=== PATIENT | female | born 1965 | race Caucasian/White ===

== ENCOUNTER 2016-12-21 06:06 | Day surgery (SDC) | payer BC ==
[2016-12-18 10:21] LABS: Basophils # (auto) 0.2 uL; Basophils % (auto) 1.2 % (0.0-2.0); Eosinophils # (auto) 0.2 uL; Eosinophils % (auto) 1.6 % (0.0-7.0); Hematocrit 43.5 % (36.0-46.0); Hemoglobin 14.9 g/dL (12.2-16.2); Lymphocytes # (auto) 2.2 uL; Lymphocytes % (auto) 16.4 % (10.0-50.0); Mean Corpuscular Hgb Conc. 34.2 g/dL (32.0-36.0); Mean Corpuscular Volume 96.5 fL (80.0-100.0); Mean Platelet Volume 9.7 fL (7.4-10.4); Monocytes # (auto) 0.8 uL; Monocytes % (auto) 5.7 % (0.0-12.0); Neutrophils # (auto) 10.1 uL; Neutrophils % (auto) 75.1 % (37.0-80.0); Platelet Count (auto) 373 10^3/uL (140-450); Red Cell Distribution Width 12.8 % (11.6-16.0); White Blood Cell 13.5 10^3/uL (4.4-10.8)
[2016-12-18 10:31] LABS: Urine Bilirubin Negative (Negative); Urine Blood Negative /uL (Negative); Urine Color Yellow (Yellow); Urine Glucose Normal (Normal); Urine Ketone Negative (Negative); Urine Nitrite Negative (Negative); Urine RBC <1 /hpf (0 - 4); Urine Squamous Epithelial Cell FEW /hpf (<5); Urine Urobilinogen Normal (Negative); Urine pH 5.5 (5.0-8.0)
[2016-12-18 10:38] LABS: Albumin 3.9 g/dL (3.4-5.0); BUN/Creatinine Ratio 21.2; Bilirubin, Total 0.3 mg/dL (0.2-1.0); Calcium 9.2 mg/dL (8.5-10.1); Total Protein 7.3 g/dL (6.4-8.2)
[~2016-12-21] VITALS: Ht 175.3 cm; Wt 72.6 kg
[~2016-12-21 06:06] MED LIST: LEVO25TA9 OR; PREG50CA PO
[2016-12-21] MEDS ORDERED: ceFAZolin 1GM/50ML D5W 100 ML IV ONE (06:36)
[2016-12-21] MEDS ORDERED: NEOMYCIN-BACITRACIN-POLYM 15GM TOP OINT TOP ONE (06:37)
[2016-12-21] MEDS ORDERED: LIDOCAINE 1% HCL (LOCAL ANESTH.) INJ 20ML MDV ONE ×2 (06:37)
[2016-12-21] MEDS ORDERED: BUPIVACAINE 0.25% INJ 50ML VIAL ONE (06:37)
[2016-12-21] MEDS ORDERED: HEPARIN SODIUM (PORCINE) 5000 UNITS/ML 1ML VIAL ONE (06:56)
[2016-12-21] MEDS ORDERED: fentaNYL CITRATE 100 MCG/2 ML VL ONE (07:24)
[2016-12-21] MEDS ORDERED: MIDAZOLAM HCL 1MG/1ML-2 ML VIAL ONE (07:24)
[2016-12-21] MEDS ORDERED: MEPERIDINE HCL (50 MG/ML) 1 ML VIAL ONE (07:24)
[2016-12-21] MEDS ORDERED: PROPOFOL 10 MG/ML 20 ML IV ONE (07:26)
[2016-12-21] MEDS ORDERED: DEXAMETHASONE SOD PHOS 10MG/1ML VIAL INJ ONE (07:26)
[2016-12-21] MEDS ORDERED: KETOROLAC TROMETH 30 MG/ML 1ML VIAL ONE (07:42)
[2016-12-21] MEDS ORDERED: ePHEDrine SULFATE 50 MG/ML AMP IV PRN (08:15)
[2016-12-21] MEDS ORDERED: MIDAZOLAM HCL 1MG/1ML-2 ML VIAL IV PRN (08:15)
[2016-12-21] MEDS ORDERED: LABETALOL HCL 5 MG/ML 4ML SYRINGE IV PRN (08:15)
[2016-12-21] MEDS ORDERED: MORPHINE SULF INJ 2 MG/ML SYRINGE 1ML IV PRN (08:15)
[2016-12-21] MEDS ORDERED: KETOROLAC TROMETH 30 MG/ML 1ML VIAL IV ONE (08:15)
[2016-12-21] MEDS ORDERED: HYDROmorphone HCL 2 MG/ML VL IV PRN (08:15)
[2016-12-21] MEDS ORDERED: ONDANSETRON HCL 4 MG/2 ML VIAL IV ONE (08:15)
[2016-12-21 09:29] VITALS: BP 139/54
== END 2016-12-21 09:30 | disposition home or self-care (01) ==
LOC: SUR 06:06
PROVIDERS: ATTEND Surgery
DX: R22.2 Localized swelling, mass and lump, trunk (principal)
CPT/HCPCS: 11406; 36415; 80053; 81001; 85025; 85730; 88304; J0690; J1100; J1644; J1885; J2001; J2175; J2250; J2704; J3010; J3490

== ENCOUNTER 2017-02-06 14:09 | Inpatient (IN) | payer BC ==
[~2017-02-06] VITALS: Ht 175.3 cm; Wt 73.5 kg
[2017-02-06] MEDS ORDERED: SODIUM CHLORIDE 0.9% 1,000 ML IV ONE ×3 (14:37)
[2017-02-06] MEDS ORDERED: ONDANSETRON HCL 4 MG/2 ML VIAL IV ONE (14:45)
[2017-02-06] MEDS ORDERED: MORPHINE SULFATE 4 MG/ML SYRG IV ONE (14:45)
[2017-02-06] MEDS ORDERED: cefTRIAXone 1GM/50ML D5W 50 ML IV ONE (14:45)
[2017-02-06] MEDS ORDERED: CLINDAMYCIN 900MG IV 50 ML IV ONE (14:45)
[2017-02-06 15:16] LABS: Basophils # (auto) 0 uL; Basophils % (auto) 0.2 % (0.0-2.0); CONDITION Y; Eosinophils # (auto) 0.2 uL; Eosinophils % (auto) 2.9 % (0.0-7.0); Hematocrit 48.1 % (36.0-46.0); Hemoglobin 16.1 g/dL (12.2-16.2); Lymphocytes # (auto) 1.3 uL; Lymphocytes % (auto) 17.5 % (10.0-50.0); Mean Corpuscular Hemoglobin 32.3 pg (28.0-32.0); Mean Corpuscular Hgb Conc. 33.5 g/dL (32.0-36.0); Mean Corpuscular Volume 96.4 fL (80.0-100.0); Mean Platelet Volume 9.5 fL (7.4-10.4); Monocytes # (auto) 0.2 uL; Monocytes % (auto) 3.2 % (0.0-12.0); Neutrophils # (auto) 5.6 uL; Neutrophils % (auto) 76.2 % (37.0-80.0); Platelet Count (auto) 178 10^3/uL (140-450); Red Cell Distribution Width 14.8 % (11.6-16.0); White Blood Cell 7.4 10^3/uL (4.4-10.8)
[2017-02-06 15:38] LABS: Albumin 3.4 g/dL (3.4-5.0); Alkaline Phosphatase 85 U/L (45-117); Anion Gap 10 (5-15); Aspartate Aminotransferase 2306 U/L (15-37); BUN/Creatinine Ratio 12.9; Bilirubin, Total 1.8 mg/dL (0.2-1.0); Blood Urea Nitrogen 8 mg/dL (7-18); Calcium 8.5 mg/dL (8.5-10.1); Carbon Dioxide 26 mmol/L (21-32); Chloride 99 mmol/L (98-107); GFR African American 129 mL/min; GFR Non-African American 107 mL/min; Glucose 128 mg/dL (74-106); Potassium 3.5 mmol/L (3.5-5.1); Sodium 135 mmol/L (136-145)
[2017-02-06] MEDS ORDERED: HYDROmorphone HCL 2 MG/ML VL IV ONE (15:45)
[2017-02-06 16:41] LABS: INR 1.23 (0.9-1.15); Partial Thromboplastin Time 29.1 sec (22.64-33.71)
[2017-02-06 16:55] LABS: Prothrombin Time 13.4 sec (9.37-12.3)
[2017-02-06] MEDS ORDERED: PREGABALIN 25 MG CAP PO ONE (18:00)
[2017-02-06] MEDS ORDERED: LEVOTHYROXINE SODIUM 25 MCG TAB PO ONE (18:00)
[2017-02-06] MEDS ORDERED: HYDROcodone-ACET 5/325MG TAB PO PRN (18:00)
[2017-02-06] MEDS ORDERED: TEMAZEPAM 15 MG CAP PO PRN (18:00)
[2017-02-06] MEDS ORDERED: DOCUSATE SOD 100 MG CAP PO PRN (18:00)
[2017-02-06] MEDS ORDERED: ACETAMINOPHEN 325 MG TAB PO PRN (18:00)
[2017-02-06] MEDS ORDERED: ONDANSETRON HCL 4 MG/2 ML VIAL IV PRN (18:00)
[2017-02-06] MEDS ORDERED: DEXTROSE (50%) 50ML SYRG IV PRN (18:00)
[2017-02-06] MEDS ORDERED: MULTIPLE VITAMIN TAB PO ONE (18:15)
[2017-02-06] MEDS ORDERED: ZINC SULFATE 220 MG CAP PO ONE (18:15)
[2017-02-06] MEDS ORDERED: ASCORBIC ACID 500 MG TAB PO ONE (18:15)
[2017-02-06] MEDS ORDERED: FAMOTIDINE 20 MG TAB PO ONE (18:15)
[2017-02-06] MEDS: SODIUM CHLORIDE 0.9% 1,000 ML IV SCH (18:47)
[2017-02-06 19:45] VITALS: BP 122/80
[2017-02-06] MEDS: MORPHINE SULF INJ 2 MG/ML SYRINGE 1ML IV PRN (20:54)
[2017-02-06 22:07] VITALS: BP 122/80
[2017-02-06 22:13] LABS: Urine Bilirubin Negative (Negative); Urine Blood Negative /uL (Negative); Urine Color Yellow (Yellow); Urine Glucose Normal (Normal); Urine Ketone Negative (Negative); Urine Mucus FEW (None Seen); Urine Nitrite Negative (Negative); Urine RBC 1 /hpf (0 - 4); Urine Squamous Epithelial Cell MOD /hpf (<5)
[2017-02-06] MEDS: ACCU-CHEK COMFORT CURVE STRIP VI SCH (22:56)
[2017-02-06] MEDS: CLINDAMYCIN 600MG IV 50 ML IV SCH (22:56)
[2017-02-06] MEDS: FAMOTIDINE 20 MG TAB PO SCH (22:56)
[2017-02-06] MEDS: ASCORBIC ACID 500 MG TAB PO SCH (22:56)
[2017-02-06] MEDS: PREGABALIN 25 MG CAP PO SCH (22:56)
[2017-02-06] MEDS: InsuLIN REG 1unit/0.01ml Soln (100units/ml) SC SCH (22:57)
[2017-02-07] MEDS ORDERED: DULO60CA PO (01:15)
[2017-02-07] MEDS ORDERED: PREG50CA PO (01:15)
[2017-02-07] MEDS: MORPHINE SULF INJ 2 MG/ML SYRINGE 1ML IV PRN (03:38)
[2017-02-07 04:51] VITALS: BP 117/79
[2017-02-07 06:36] LABS: Basophils # (auto) 0 uL; Basophils % (auto) 0.8 % (0.0-2.0); CONDITION Y; Eosinophils # (auto) 0.5 uL; Eosinophils % (auto) 7.9 % (0.0-7.0); Hematocrit 37.3 % (36.0-46.0); Hemoglobin 12.6 g/dL (12.2-16.2); Lymphocytes # (auto) 1.8 uL; Lymphocytes % (auto) 30.6 % (10.0-50.0); Mean Corpuscular Hemoglobin 32.7 pg (28.0-32.0); Mean Corpuscular Hgb Conc. 33.6 g/dL (32.0-36.0); Mean Corpuscular Volume 97.3 fL (80.0-100.0); Mean Platelet Volume 9.2 fL (7.4-10.4); Monocytes # (auto) 0.5 uL; Neutrophils % (auto) 51.7 % (37.0-80.0); Platelet Count (auto) 147 10^3/uL (140-450); Red Cell Distribution Width 14.8 % (11.6-16.0); White Blood Cell 5.8 10^3/uL (4.4-10.8)
[2017-02-07 06:52] LABS: Albumin 2.4 g/dL (3.4-5.0); Calcium 7.4 mg/dL (8.5-10.1); Potassium 3.9 mmol/L (3.5-5.1)
[2017-02-07] MEDS: LEVOTHYROXINE SODIUM 25 MCG TAB PO SCH (06:52)
[2017-02-07] MEDS: CLINDAMYCIN 600MG IV 50 ML IV SCH ×3 (06:52→22:35)
[2017-02-07] MEDS: InsuLIN REG 1unit/0.01ml Soln (100units/ml) SC SCH ×4 (06:52→22:00)
[2017-02-07] MEDS: ACCU-CHEK COMFORT CURVE STRIP VI SCH ×4 (06:52→22:00)
[2017-02-07 06:53] LABS: BUN/Creatinine Ratio 15.8
[2017-02-07 07:06] LABS: Bilirubin, Total 0.9 mg/dL (0.2-1.0); Total Protein 5.2 g/dL (6.4-8.2)
[2017-02-07 08:00] VITALS: BP 123/78
[2017-02-07 09:00] VITALS: BP 123/78
[2017-02-07] MEDS: cefTRIAXone 1GM/50ML D5W 50 ML IV SCH (09:32)
[2017-02-07] MEDS: ASCORBIC ACID 500 MG TAB PO SCH ×2 (09:32→22:35)
[2017-02-07] MEDS: PREGABALIN 25 MG CAP PO SCH ×2 (09:32→22:35)
[2017-02-07] MEDS: FAMOTIDINE 20 MG TAB PO SCH ×2 (09:32→22:35)
[2017-02-07] MEDS: MULTIPLE VITAMIN TAB PO SCH (09:32)
[2017-02-07] MEDS: ZINC SULFATE 220 MG CAP PO SCH (09:50)
[2017-02-07] MEDS: SODIUM CHLORIDE 0.9% 1,000 ML IV SCH (10:35)
[2017-02-07] MEDS: Boost Glucose Control 8 Ounces PO SCH ×3 (12:00→22:35)
[2017-02-07] MEDS: HYDROmorphone HCL 2 MG/ML VL IV PRN ×3 (12:03→22:57)
[2017-02-07 13:00] VITALS: BP 118/76
[2017-02-07 17:00] VITALS: BP 144/84
[2017-02-07] MEDS ORDERED: LORazepam 2MG/ML-1ML VIAL IV PRN (17:30)
[2017-02-07 22:00] VITALS: BP 123/80
[2017-02-08] MEDS: HYDROmorphone HCL 2 MG/ML VL IV PRN ×4 (03:17→21:38)
[2017-02-08 05:00] VITALS: BP 111/61
[2017-02-08] MEDS: Boost Glucose Control 8 Ounces PO SCH ×4 (05:23→21:36)
[2017-02-08] MEDS: CLINDAMYCIN 600MG IV 50 ML IV SCH ×3 (05:23→21:36)
[2017-02-08 05:55] LABS: Basophils # (auto) 0.1 uL; Basophils % (auto) 0.9 % (0.0-2.0); CONDITION Y; Eosinophils # (auto) 0.7 uL; Hematocrit 39.1 % (36.0-46.0); Lymphocytes # (auto) 1.6 uL; Lymphocytes % (auto) 25.3 % (10.0-50.0); Mean Corpuscular Hemoglobin 32.4 pg (28.0-32.0); Mean Corpuscular Hgb Conc. 33.3 g/dL (32.0-36.0); Mean Corpuscular Volume 97.3 fL (80.0-100.0); Mean Platelet Volume 8.9 fL (7.4-10.4); Neutrophils % (auto) 47.8 % (37.0-80.0); Platelet Count (auto) 195 10^3/uL (140-450); Red Cell Distribution Width 14.8 % (11.6-16.0); White Blood Cell 6.4 10^3/uL (4.4-10.8)
[2017-02-08 06:07] LABS: Albumin 2.6 g/dL (3.4-5.0); BUN/Creatinine Ratio 13.6; Bilirubin, Total 0.6 mg/dL (0.2-1.0); Calcium 8.3 mg/dL (8.5-10.1); Potassium 3.9 mmol/L (3.5-5.1); Total Protein 5.9 g/dL (6.4-8.2)
[2017-02-08] MEDS: InsuLIN REG 1unit/0.01ml Soln (100units/ml) SC SCH ×4 (06:37→21:37)
[2017-02-08] MEDS: ACCU-CHEK COMFORT CURVE STRIP VI SCH ×4 (06:37→21:37)
[2017-02-08] MEDS: LEVOTHYROXINE SODIUM 25 MCG TAB PO SCH (06:37)
[2017-02-08] MEDS: SODIUM CHLORIDE 0.9% 1,000 ML IV SCH ×2 (06:46→20:00)
[2017-02-08 08:00] VITALS: BP 135/94
[2017-02-08 09:00] VITALS: BP 135/94
[2017-02-08] MEDS: ZINC SULFATE 220 MG CAP PO SCH (11:09)
[2017-02-08] MEDS: PREGABALIN 25 MG CAP PO SCH ×2 (11:09→21:35)
[2017-02-08] MEDS: cefTRIAXone 1GM/50ML D5W 50 ML IV SCH (11:09)
[2017-02-08] MEDS: MULTIPLE VITAMIN TAB PO SCH (11:09)
[2017-02-08] MEDS: ASCORBIC ACID 500 MG TAB PO SCH ×2 (11:09→21:35)
[2017-02-08 13:00] VITALS: BP 126/74
[2017-02-08 17:00] VITALS: BP 130/60
[2017-02-08] MEDS: FAMOTIDINE 20 MG TAB PO SCH ×2 (17:19→21:36)
[2017-02-08 22:00] VITALS: BP 108/70
[2017-02-09 05:00] VITALS: BP 124/82
[2017-02-09] MEDS: CLINDAMYCIN 600MG IV 50 ML IV SCH ×3 (06:21→22:36)
[2017-02-09] MEDS: InsuLIN REG 1unit/0.01ml Soln (100units/ml) SC SCH ×4 (06:21→22:00)
[2017-02-09] MEDS: LEVOTHYROXINE SODIUM 25 MCG TAB PO SCH (06:21)
[2017-02-09] MEDS: Boost Glucose Control 8 Ounces PO SCH ×4 (06:21→22:36)
[2017-02-09] MEDS: ACCU-CHEK COMFORT CURVE STRIP VI SCH ×4 (06:22→22:00)
[2017-02-09 07:08] LABS: DEFINITIVE SEE PRINTOUT; Hematocrit 40.5 % (36.0-46.0); Hemoglobin 13.7 g/dL (12.2-16.2); Mean Corpuscular Hemoglobin 32.2 pg (28.0-32.0); Mean Corpuscular Hgb Conc. 33.8 g/dL (32.0-36.0); Mean Corpuscular Volume 95.3 fL (80.0-100.0); Mean Platelet Volume 8.8 fL (7.4-10.4); Platelet Count (auto) 224 10^3/uL (140-450); Red Cell Distribution Width 13.4 % (11.6-16.0); SUSPECT SEE PRINTOUT
[2017-02-09 07:13] LABS: BUN/Creatinine Ratio 20.6; Calcium 8.3 mg/dL (8.5-10.1); Potassium 3.9 mmol/L (3.5-5.1)
[2017-02-09 07:24] LABS: Metamyelocytes % 0; Myelocytes % 0; Promyelocytes % 0; Reactive Lymphocytes 0
[2017-02-09 08:00] VITALS: BP 124/82
[2017-02-09 08:16] LABS: Platelet Estimate Adequate; RBC Morphology Normal
[2017-02-09 09:00] VITALS: BP 120/81
[2017-02-09] MEDS: cefTRIAXone 1GM/50ML D5W 50 ML IV SCH (09:00)
[2017-02-09] MEDS: ASCORBIC ACID 500 MG TAB PO SCH ×2 (09:48→22:37)
[2017-02-09] MEDS: PREGABALIN 25 MG CAP PO SCH ×2 (09:48→22:36)
[2017-02-09] MEDS: ZINC SULFATE 220 MG CAP PO SCH (09:48)
[2017-02-09] MEDS: MULTIPLE VITAMIN TAB PO SCH (09:48)
[2017-02-09] MEDS: FAMOTIDINE 20 MG TAB PO SCH ×2 (09:52→22:00)
[2017-02-09] MEDS: HYDROmorphone HCL 2 MG/ML VL IV PRN ×3 (12:18→23:15)
[2017-02-09 13:00] VITALS: BP 121/76
[2017-02-09 16:15] LABS: INR 0.95 (0.9-1.15); Partial Thromboplastin Time 27.3 sec (22.64-33.71); Prothrombin Time 10.3 sec (9.37-12.3)
[2017-02-09 17:00] VITALS: BP 110/74
[2017-02-09] MEDS: SODIUM CHLORIDE 0.9% 1,000 ML IV SCH (17:24)
[2017-02-09 22:00] VITALS: BP 116/79
[2017-02-10] MEDS: SODIUM CHLORIDE 0.9% 1,000 ML IV SCH (05:15)
[2017-02-10 05:30] VITALS: BP 117/76
[2017-02-10] MEDS: Boost Glucose Control 8 Ounces PO SCH ×4 (05:57→21:32)
[2017-02-10] MEDS: CLINDAMYCIN 600MG IV 50 ML IV SCH (06:27)
[2017-02-10] MEDS: LEVOTHYROXINE SODIUM 25 MCG TAB PO SCH (06:28)
[2017-02-10] MEDS: InsuLIN REG 1unit/0.01ml Soln (100units/ml) SC SCH (07:00)
[2017-02-10] MEDS: ACCU-CHEK COMFORT CURVE STRIP VI SCH (07:01)
[2017-02-10 07:30] VITALS: BP_SYST 107; BP_SYST 122; BP_DIAS 61; BP_DIAS 80
[2017-02-10 09:00] VITALS: BP 107/61
[2017-02-10] MEDS: cefTRIAXone 1GM/50ML D5W 50 ML IV SCH (09:30)
[2017-02-10] MEDS: HYDROmorphone HCL 2 MG/ML VL IV PRN ×4 (09:30→21:48)
[2017-02-10] MEDS ORDERED: LIDOCAINE W/ EPINEPHRINE 1 % INJ 30ML ONE (09:45)
[2017-02-10] MEDS ORDERED: BUPIVACAINE W/ EPINEPH 0.25% INJ 50ML MDV ONE (09:45)
[2017-02-10] MEDS ORDERED: LIDOCAINE 1% HCL (LOCAL ANESTH.) INJ 20ML MDV ONE (09:45)
[2017-02-10] MEDS ORDERED: BUPIVACAINE 0.25% INJ 50ML VIAL ONE (09:46)
[2017-02-10] MEDS: PREGABALIN 25 MG CAP PO SCH ×2 (09:54→21:31)
[2017-02-10] MEDS: MULTIPLE VITAMIN TAB PO SCH (09:54)
[2017-02-10] MEDS: ZINC SULFATE 220 MG CAP PO SCH (09:54)
[2017-02-10] MEDS: FAMOTIDINE 20 MG TAB PO SCH ×2 (09:54→21:31)
[2017-02-10] MEDS: ASCORBIC ACID 500 MG TAB PO SCH ×2 (09:55→21:31)
[2017-02-10] MEDS ORDERED: ePHEDrine SULFATE 50 MG/ML AMP IV PRN (10:30)
[2017-02-10] MEDS ORDERED: HYDROmorphone HCL 2 MG/ML VL IV PRN (10:30)
[2017-02-10] MEDS ORDERED: ONDANSETRON HCL 4 MG/2 ML VIAL IV ONE (10:30)
[2017-02-10] MEDS ORDERED: LABETALOL HCL 5 MG/ML 4ML SYRINGE IV PRN (10:30)
[2017-02-10] MEDS ORDERED: MIDAZOLAM HCL 1MG/1ML-2 ML VIAL IV PRN (10:30)
[2017-02-10] MEDS ORDERED: MORPHINE SULF INJ 2 MG/ML SYRINGE 1ML IV PRN (10:30)
[2017-02-10] MEDS ORDERED: KETOROLAC TROMETH 30 MG/ML 1ML VIAL IV ONE (10:30)
[2017-02-10] MEDS ORDERED: MIDAZOLAM HCL 1MG/1ML-2 ML VIAL ONE (10:32)
[2017-02-10] MEDS ORDERED: MEPERIDINE HCL (50 MG/ML) 1 ML VIAL ONE (10:32)
[2017-02-10] MEDS ORDERED: fentaNYL CITRATE 100 MCG/2 ML VL ONE (10:32)
[2017-02-10] MEDS ORDERED: BACITRACIN INJ 50000 UNIT VIAL ONE ×2 (11:15→12:33)
[2017-02-10] MEDS ORDERED: DEXAMETHASONE SOD PHOS 10MG/1ML VIAL INJ ONE (11:47)
[2017-02-10] MEDS ORDERED: PROPOFOL 10 MG/ML 20 ML IV ONE (11:47)
[2017-02-10] MEDS ORDERED: LEVOFLOXACIN 500MG 100 ML IV ONE (11:49)
[2017-02-10] MEDS ORDERED: SILVER SULFADIAZINE 1 % TOPICAL CREAM 50GM TOP ONE ×2 (12:35→12:40)
[2017-02-10] MEDS ORDERED: KETOROLAC TROMETH 30 MG/ML 1ML VIAL IV PRN (14:45)
[2017-02-10 17:00] VITALS: BP 101/44
[2017-02-10] MEDS: SILVER SULFADIAZINE 1 % TOPICAL CREAM 50GM TOP SCH (21:32)
[2017-02-10 22:00] VITALS: BP 103/65
[2017-02-11] MEDS: HYDROmorphone HCL 2 MG/ML VL IV PRN ×7 (02:10→23:46)
[2017-02-11 05:30] VITALS: BP 100/69
[2017-02-11] MEDS: LEVOTHYROXINE SODIUM 25 MCG TAB PO SCH (05:57)
[2017-02-11] MEDS: Boost Glucose Control 8 Ounces PO SCH ×4 (05:57→20:51)
[2017-02-11 09:00] VITALS: BP 112/61
[2017-02-11] MEDS: ZINC SULFATE 220 MG CAP PO SCH (09:31)
[2017-02-11] MEDS: PREGABALIN 25 MG CAP PO SCH ×2 (09:31→20:50)
[2017-02-11] MEDS: MULTIPLE VITAMIN TAB PO SCH (09:31)
[2017-02-11] MEDS: cefTRIAXone 1GM/50ML D5W 50 ML IV SCH (09:31)
[2017-02-11] MEDS: SILVER SULFADIAZINE 1 % TOPICAL CREAM 50GM TOP SCH ×2 (09:32→20:51)
[2017-02-11] MEDS: ASCORBIC ACID 500 MG TAB PO SCH ×2 (09:32→20:51)
[2017-02-11] MEDS: FAMOTIDINE 20 MG TAB PO SCH ×2 (09:32→20:50)
[2017-02-11] MEDS ORDERED: ZOLPIDEM TARTRATE 5 MG TAB PO PRN (10:45)
[2017-02-11] MEDS: HYDROcodone-ACET 10/325MG TAB PO PRN (12:29)
[2017-02-11 13:00] VITALS: BP 122/72
[2017-02-11 17:00] VITALS: BP 110/70
[2017-02-11] MEDS: PRO-STAT 64 30ML PO SCH (17:55)
[2017-02-11 20:00] VITALS: BP 142/55
[2017-02-11 22:36] VITALS: BP 142/55
[2017-02-12] MEDS: HYDROmorphone HCL 2 MG/ML VL IV PRN ×3 (03:29→09:28)
[2017-02-12 05:40] VITALS: BP 131/68
[2017-02-12] MEDS: Boost Glucose Control 8 Ounces PO SCH ×2 (06:22→12:00)
[2017-02-12] MEDS: LEVOTHYROXINE SODIUM 25 MCG TAB PO SCH (06:22)
[2017-02-12 09:00] VITALS: BP_SYST 103; BP_SYST 132; BP_DIAS 75; BP_DIAS 79
[2017-02-12] MEDS: cefTRIAXone 1GM/50ML D5W 50 ML IV SCH (09:26)
[2017-02-12] MEDS: ASCORBIC ACID 500 MG TAB PO SCH (09:27)
[2017-02-12] MEDS: PREGABALIN 25 MG CAP PO SCH (09:27)
[2017-02-12] MEDS: ZINC SULFATE 220 MG CAP PO SCH (09:27)
[2017-02-12] MEDS: MULTIPLE VITAMIN TAB PO SCH (09:27)
[2017-02-12] MEDS: FAMOTIDINE 20 MG TAB PO SCH (09:27)
[2017-02-12] MEDS: PRO-STAT 64 30ML PO SCH (09:33)
[2017-02-12] MEDS: SILVER SULFADIAZINE 1 % TOPICAL CREAM 50GM TOP SCH (09:37)
[2017-02-12] MEDS: HYDROcodone-ACET 10/325MG TAB PO PRN (12:24)
== END 2017-02-12 15:55 | disposition home health service (06) | DRG 853 ==
LOC: ER 14:12 → OVERFLOW 14:13 → WEST WING 19:25
PROVIDERS: ADMIT Internal Medicine; ATTEND Internal Medicine
PROC: 0JBM0ZZ Excision of Left Upper Leg Subcutaneous Tissue and Fascia, Open Approach (ICD-10-PCS; 2017-02-10)
PROC: 0HBV0ZZ Excision of Bilateral Breast, Open Approach (ICD-10-PCS; 2017-02-10)
PROC: 0JBL0ZZ Excision of Right Upper Leg Subcutaneous Tissue and Fascia, Open Approach (ICD-10-PCS; principal; 2017-02-10 11:55)
DX: A41.9 Sepsis, unspecified organism (principal); E43 Unspecified severe protein-calorie malnutrition; D68.9 Coagulation defect, unspecified; E87.1 Hypo-osmolality and hyponatremia; L03.115 Cellulitis of right lower limb; L97.119 Non-pressure chronic ulcer of right thigh with unspecified severity; G89.29 Other chronic pain; M32.9 Systemic lupus erythematosus, unspecified; E11.9 Type 2 diabetes mellitus without complications; H53.8 Other visual disturbances; E03.9 Hypothyroidism, unspecified; K21.9 Gastro-esophageal reflux disease without esophagitis; M06.9 Rheumatoid arthritis, unspecified; Z51.5 Encounter for palliative care; Z80.0 Family history of malignant neoplasm of digestive organs; Z88.1 Allergy status to other antibiotic agents; Z88.0 Allergy status to penicillin; Z81.1 Family history of alcohol abuse and dependence; Z80.9 Family history of malignant neoplasm, unspecified; Z72.0 Tobacco use; Z71.89 Other specified counseling; Z68.23 Body mass index [BMI] 23.0-23.9, adult
CPT/HCPCS: 36415; 70450; 71010; 73700; 80048; 80053; 81001; 82962; 83036; 83605; 84484; 85007; 85025; 85027; 85610; 85730; 87040; 87070; 87075; 87076; 87077; 87086; 87186; 87205; 93005; 93306; 96361; 96365; 96368; 96375; J0696; J1100; J1956; J2001; J2250; J2405; J2704; J3490

== ENCOUNTER → 2017-02-23 | Outpatient (CLI) | payer BC ==
[~2017-02-23] MED LIST changes: +DULO60CA PO
[2017-02-23 11:36] LABS: Albumin 3.9 g/dL (3.4-5.0); BUN/Creatinine Ratio 12.9; Bilirubin, Total 0.3 mg/dL (0.2-1.0); Calcium 9.1 mg/dL (8.5-10.1); Potassium 4.1 mmol/L (3.5-5.1); Total Protein 7.9 g/dL (6.4-8.2)
[2017-02-23 11:52] LABS: Basophils # (auto) 0.1 uL; Basophils % (auto) 1.1 % (0.0-2.0); CONDITION Y; Eosinophils # (auto) 0.2 uL; Eosinophils % (auto) 1.3 % (0.0-7.0); Hematocrit 47.4 % (36.0-46.0); Hemoglobin 15.8 g/dL (12.2-16.2); Lymphocytes # (auto) 2.3 uL; Lymphocytes % (auto) 19.1 % (10.0-50.0); Mean Corpuscular Hemoglobin 32.2 pg (28.0-32.0); Mean Corpuscular Hgb Conc. 33.3 g/dL (32.0-36.0); Mean Corpuscular Volume 96.7 fL (80.0-100.0); Mean Platelet Volume 9.5 fL (7.4-10.4); Monocytes # (auto) 0.7 uL; Monocytes % (auto) 5.7 % (0.0-12.0); Neutrophils # (auto) 8.7 uL; Neutrophils % (auto) 72.8 % (37.0-80.0); Platelet Count (auto) 504 10^3/uL (140-450); Red Cell Distribution Width 14.9 % (11.6-16.0)
== END | disposition home or self-care (01) ==
LOC: LAB 10:36
DX: I10 Essential (primary) hypertension (principal); M06.9 Rheumatoid arthritis, unspecified; M25.50 Pain in unspecified joint; D64.9 Anemia, unspecified; Z79.899 Other long term (current) drug therapy
CPT/HCPCS: 36415; 80053; 85025; 85652; 86141

== ENCOUNTER → 2017-06-15 | Outpatient (CLI) | payer BC ==
[2017-06-15 07:42] LABS: Basophils # (auto) 0.1 uL; Basophils % (auto) 0.9 % (0.0-2.0); Eosinophils # (auto) 0.4 uL; Eosinophils % (auto) 3.4 % (0.0-7.0); Hematocrit 47.1 % (36.0-46.0); Hemoglobin 15.9 g/dL (12.2-16.2); Lymphocytes # (auto) 2.4 uL; Lymphocytes % (auto) 20.5 % (10.0-50.0); Mean Corpuscular Hemoglobin 33.6 pg (28.0-32.0); Mean Corpuscular Hgb Conc. 33.8 g/dL (32.0-36.0); Mean Corpuscular Volume 99.4 fL (80.0-100.0); Mean Platelet Volume 9.4 fL (6.9-10.8); Monocytes # (auto) 0.8 uL; Monocytes % (auto) 6.7 % (0.0-12.0); Neutrophils % (auto) 68.5 % (37.0-80.0); Platelet Count (auto) 306 10^3/uL (140-450); Red Cell Distribution Width 13.3 % (11.8-14.3); White Blood Cell 11.7 10^3/uL (4.4-10.8)
[2017-06-15 07:49] LABS: Urine Bilirubin Negative (Negative); Urine Blood Negative /uL (Negative); Urine Color Yellow (Yellow); Urine Glucose Normal (Normal); Urine Ketone Negative (Negative); Urine Mucus FEW (None Seen); Urine Nitrite Negative (Negative); Urine RBC 1 /hpf (0 - 4); Urine Squamous Epithelial Cell MOD /hpf (<5); Urine Urobilinogen Normal (Negative)
[2017-06-15 08:08] LABS: Bilirubin, Total 0.6 mg/dL (0.2-1.0); Calcium 9.3 mg/dL (8.5-10.1); Potassium 4.5 mmol/L (3.5-5.1); Total Protein 7.6 g/dL (6.4-8.2)
== END | disposition home or self-care (01) ==
LOC: LAB 06:46
PROVIDERS: ATTEND Family Medicine
DX: F03.90 Unspecified dementia, unspecified severity, without behavioral disturbance, psychotic disturbance, mood disturbance, and anxiety (principal); F51.01 Primary insomnia; Z79.899 Other long term (current) drug therapy
CPT/HCPCS: 36415; 80053; 80061; 81001; 83036; 84443; 85025

== ENCOUNTER → 2018-08-10 | Outpatient (CLI) | payer BC ==
[2018-08-10 08:14] LABS: Urine WBC None Seen /hpf (0 - 5)
[2018-08-10 08:21] LABS: Basophils # (auto) 0.1 uL; Basophils % (auto) 0.9 % (0.0-2.0); Eosinophils # (auto) 0.4 uL; Eosinophils % (auto) 3.4 % (0.0-7.0); Hematocrit 45.2 % (36.0-46.0); Hemoglobin 15.3 g/dL (12.2-16.2); Lymphocytes # (auto) 1.8 uL; Lymphocytes % (auto) 14.2 % (10.0-50.0); Mean Corpuscular Hemoglobin 33.5 pg (28.0-32.0); Mean Corpuscular Hgb Conc. 33.9 g/dL (32.0-36.0); Monocytes # (auto) 0.8 uL; Monocytes % (auto) 6.7 % (0.0-12.0); Neutrophils # (auto) 9.2 uL; Neutrophils % (auto) 74.8 % (37.0-80.0); Platelet Count (auto) 300 10^3/uL (140-450); Red Blood Cells 4.57 10^6/uL (4.0-5.20); Red Cell Distribution Width 13.8 % (11.8-14.3); White Blood Cell 12.4 10^3/uL (4.4-10.8)
[2018-08-10 08:54] LABS: Alanine Aminotransferase 16 U/L (13-56); Albumin 3.8 g/dL (3.4-5.0); Anion Gap 4 (5-15); Aspartate Aminotransferase 13 U/L (15-37); Blood Urea Nitrogen 14 mg/dL (7-18); Calcium 8.6 mg/dL (8.5-10.1); Carbon Dioxide 25 mmol/L (21-32); Chloride 110 mmol/L (98-107); GFR African American > 60 mL/min; GFR Non-African American > 60 mL/min; Glucose 90 mg/dL (74-106); Potassium 3.9 mmol/L (3.5-5.1); Sodium 139 mmol/L (136-145)
[2018-08-10 08:58] LABS: Alkaline Phosphatase 53 U/L (45-117); Bilirubin, Total 0.3 mg/dL (0.2-1.0); Cholesterol 168 mg/dL (< 200); HDL Cholesterol 52 mg/dL (40-59); LDL Cholesterol 106 mg/dL (< 100); Total Protein 7.1 g/dL (6.4-8.2); Triglycerides 89 mg/dL (< 150)
[2018-08-10 09:20] LABS: Urine Bacteria NONE SEEN /hpf (None Seen); Urine Blood Negative /uL (Negative); Urine Specific Gravity 1.004 (1.001-1.035)
== END | disposition home or self-care (01) ==
LOC: LAB 07:17
PROVIDERS: ATTEND Family Medicine
DX: E03.9 Hypothyroidism, unspecified (principal); E78.49 Other hyperlipidemia
CPT/HCPCS: 36415; 80053; 80061; 81001; 82306; 82607; 83036; 84443; 85025; 85652; 86141

== ENCOUNTER 2019-01-20 15:10 | Emergency (ER) | payer BC ==
[~2019-01-20] VITALS: Ht 177.8 cm; Wt 70.3 kg
[2019-01-20] MEDS ORDERED: SODIUM CHLORIDE 0.9% 500 ML IV ONE (16:04)
[2019-01-20 16:43] LABS: Basophils # (auto) 0.2 uL; Basophils % (auto) 2.3 % (0.0-2.0); Eosinophils # (auto) 0.2 uL; Eosinophils % (auto) 2.9 % (0.0-7.0); Hematocrit 44.7 % (36.0-46.0); Hemoglobin 15.1 g/dL (12.2-16.2); Lymphocytes # (auto) 1.9 uL; Lymphocytes % (auto) 22.1 % (10.0-50.0); Mean Corpuscular Hemoglobin 35.9 pg (28.0-32.0); Mean Corpuscular Hgb Conc. 33.7 g/dL (32.0-36.0); Mean Corpuscular Volume 106.4 fL (80.0-100.0); Monocytes # (auto) 0.6 uL; Monocytes % (auto) 6.7 % (0.0-12.0); Neutrophils # (auto) 5.7 uL; Platelet Count (auto) 258 10^3/uL (140-450); Red Cell Distribution Width 17.3 % (11.8-14.3); White Blood Cell 8.6 10^3/uL (4.4-10.8)
[2019-01-20 16:48] LABS: Albumin 3.9 g/dL (3.4-5.0); BUN/Creatinine Ratio 9.1; Calcium 8.7 mg/dL (8.5-10.1); Magnesium 1.9 mg/dL (1.6-2.6); Potassium 3.8 mmol/L (3.5-5.1)
[2019-01-20 16:51] LABS: Bilirubin, Total 0.5 mg/dL (0.2-1.0); Total Protein 7.3 g/dL (6.4-8.2)
[2019-01-20] MEDS ORDERED: ONDANSETRON HCL 4 MG/2 ML VIAL IV ONE (20:30)
[2019-01-20] MEDS ORDERED: methylPREDNISolone SOD SUCC 125 MG/2 ML VL IV ONE (20:30)
[2019-01-20] MEDS ORDERED: MORPHINE SULFATE 4 MG/ML SYR/VIAL IV ONE (20:30)
[2019-01-20 21:10] VITALS: BP 136/74
[2019-01-20 21:24] LABS: Urine Bacteria NONE SEEN /hpf (None Seen); Urine Blood Negative /uL (Negative); Urine Specific Gravity 1.004 (1.001-1.035); Urine WBC 6 /hpf (0 - 5)
== END 2019-01-20 20:34 | disposition home or self-care (01) ==
LOC: EDSEX 15:10 → EDBD 15:10 → ER 15:17
DX: M79.7 Fibromyalgia (principal); M19.90 Unspecified osteoarthritis, unspecified site; K21.9 Gastro-esophageal reflux disease without esophagitis
CPT/HCPCS: 36415; 71045; 80053; 81001; 83735; 85025; 93005; 94761; 96361; 96374; 96375; 99284; J2270; J2405; J2930; J7030

== ENCOUNTER → 2019-04-21 | Outpatient (CLI) | payer BC ==
[2019-04-21 12:50] LABS: Basophils # (auto) 0.1 uL; Eosinophils % (auto) 3.2 % (0.0-7.0); Monocytes # (auto) 0.9 uL; Neutrophils # (auto) 4.5 uL; White Blood Cell 7.8 10^3/uL (4.4-10.8)
[2019-04-21 12:56] LABS: Eosinophils # (auto) 0.2 uL; Hematocrit 42.4 % (36.0-46.0); Hemoglobin 14.5 g/dL (12.2-16.2); Lymphocytes % (auto) 26.1 % (10.0-50.0); Mean Corpuscular Hemoglobin 35.7 pg (28.0-32.0); Mean Corpuscular Hgb Conc. 34.3 g/dL (32.0-36.0); Mean Corpuscular Volume 104.2 fL (80.0-100.0); Monocytes % (auto) 11.7 % (0.0-12.0); Platelet Count (auto) 297 10^3/uL (140-450); Red Blood Cells 4.07 10^6/uL (4.0-5.20); Red Cell Distribution Width 14.4 % (11.8-14.3)
[2019-04-21 13:24] LABS: BUN/Creatinine Ratio 29.1; Bilirubin, Total 0.3 mg/dL (0.2-1.0); CRP High Sensitivity 0.06 mg/dL (< 0.3); Calcium 9.4 mg/dL (8.5-10.1); Total Protein 7.4 g/dL (6.4-8.2); Uric Acid 4.1 mg/dL (2.6-6.0)
== END | disposition home or self-care (01) ==
LOC: LAB 11:28
PROVIDERS: ATTEND Internal Medicine Rheumatology
DX: M06.9 Rheumatoid arthritis, unspecified (principal)
CPT/HCPCS: 36415; 80053; 84550; 85025; 85652; 86141; 86200; 86431; 86812

== ENCOUNTER → 2019-08-25 | Outpatient (CLI) | payer BC ==
[2019-08-25 10:05] LABS: Basophils # (auto) 0.1 uL; Eosinophils # (auto) 0.1 uL; Lymphocytes # (auto) 1.6 uL; Monocytes # (auto) 0.5 uL
[2019-08-25 10:06] LABS: Basophils % (auto) 1.4 % (0.0-2.0); Eosinophils % (auto) 1.2 % (0.0-7.0); Hematocrit 41.3 % (36.0-46.0); Hemoglobin 14.1 g/dL (12.2-16.2); Lymphocytes % (auto) 17.7 % (10.0-50.0); Mean Corpuscular Hemoglobin 34.6 pg (28.0-32.0); Mean Corpuscular Volume 101.6 fL (80.0-100.0); Neutrophils # (auto) 6.6 uL; Neutrophils % (auto) 73.7 % (37.0-80.0); Nucleated Red Blood Cells % 0.1 %; Platelet Count (auto) 239 10^3/uL (140-450); Red Blood Cells 4.07 10^6/uL (4.0-5.20); Red Cell Distribution Width 14.2 % (11.8-14.3); White Blood Cell 8.9 10^3/uL (4.4-10.8)
[2019-08-25 11:09] LABS: Albumin 3.7 g/dL (3.4-5.0); BUN/Creatinine Ratio 26.7; Bilirubin, Total 0.3 mg/dL (0.2-1.0); CRP High Sensitivity 0.28 mg/dL (< 0.3); Calcium 8.9 mg/dL (8.5-10.1); Potassium 3.9 mmol/L (3.5-5.1); Total Protein 6.8 g/dL (6.4-8.2)
== END | disposition home or self-care (01) ==
LOC: LAB 08:30
PROVIDERS: ATTEND Internal Medicine
DX: Z12.11 Encounter for screening for malignant neoplasm of colon (principal); R73.03 Prediabetes; E03.9 Hypothyroidism, unspecified; E55.9 Vitamin D deficiency, unspecified; E53.8 Deficiency of other specified B group vitamins; M25.50 Pain in unspecified joint
CPT/HCPCS: 36415; 80053; 80061; 82043; 82306; 82607; 83036; 84443; 85025; 85652; 86141

== ENCOUNTER 2020-03-08 02:30 | Emergency (ER) | payer BC ==
[~2020-03-08] VITALS: Ht 175.3 cm; Wt 61.2 kg
[2020-03-08] MEDS ORDERED: SODIUM CHLORIDE 0.9% 1,000 ML IVB ONE (03:18)
[2020-03-08] MEDS ORDERED: ceFAZolin 1GM/50ML 100 ML IV ONE (03:30)
[2020-03-08] MEDS ORDERED: LIDOCAINE W/ EPINEPHRINE 1% 20ML VIAL ID ONE (03:30)
[2020-03-08] MEDS ORDERED: NEOMYCIN-BACITRACIN-POLYM UNITDOSE PKG TOP OINT TOP ONE (03:30)
[2020-03-08 03:55] LABS: Basophils # (auto) 0.1 10 ^3/uL (0-0.2); Basophils % (auto) 0.8 % (0.0-2.0); Eosinophils # (auto) 0.1 10 ^3/uL (0-0.8); Hematocrit 42.4 % (36.0-46.0); Hemoglobin 14.2 g/dL (12.2-16.2); Lymphocytes # (auto) 2.5 10 ^3/uL (0.4-5.4); Lymphocytes % (auto) 26.6 % (10.0-50.0); Mean Corpuscular Hgb Conc. 33.4 g/dL (32.0-36.0); Mean Corpuscular Volume 98.7 fL (80.0-100.0); Monocytes # (auto) 0.8 10 ^3/uL (0-1.3); Monocytes % (auto) 8.2 % (0.0-12.0); Neutrophils % (auto) 63.4 % (37.0-80.0); Nucleated Red Blood Cells % 0.1 %; Platelet Count (auto) 283 10^3/uL (140-450); Red Cell Distribution Width 13.1 % (11.8-14.3); White Blood Cell 9.5 10^3/uL (4.4-10.8)
[2020-03-08 04:14] LABS: Albumin 3.5 g/dL (3.4-5.0)
[2020-03-08 04:16] LABS: Acetaminophen < 2.0 ug/mL (10-30); Salicylate < 1.7 mg/dL (2.8-20.0)
[2020-03-08 04:17] LABS: Bilirubin, Total 0.3 mg/dL (0.2-1.0); Total Protein 6.5 g/dL (6.4-8.2)
[2020-03-08 04:18] LABS: Potassium 2.8 mmol/L (3.5-5.1)
[2020-03-08 04:38] LABS: Urine WBC None Seen /hpf (0 - 5)
[2020-03-08] MEDS ORDERED: ACTIVATED CHARCOAL 50 GM/240 ML SOL PO ONE (04:45)
[2020-03-08 04:52] LABS: Urine Bacteria NONE SEEN /hpf (None Seen); Urine Blood Negative /uL (Negative); Urine Hyaline Cast FEW /lpf (0 - 2); Urine Specific Gravity 1.009 (1.001-1.035)
[2020-03-08 05:07] LABS: Amphetamine Screen, Urine NEGATIVE (NEGATIVE); Barbiturate Scree,Urine NEGATIVE (NEGATIVE); Benzodiazephine Screen, Urine NEGATIVE (NEGATIVE); Cannabinoid Screen, Urine POSITIVE (NEGATIVE); Cocaine Screen, Urine NEGATIVE (NEGATIVE); Opiate Scree,Urine NEGATIVE (NEGATIVE); Phencyclidine Screen, Urine NEGATIVE (NEGATIVE)
[2020-03-08] MEDS: POTASSIUM CHL 20MEQ/100ML 100 ML IV SCH ×2 (05:56→07:59)
[2020-03-08 09:45] VITALS: BP 102/62
== END 2020-03-08 09:52 | disposition home or self-care (01) ==
LOC: EDBD 02:30 → ER 02:30
DX: S01.81XA Laceration without foreign body of other part of head, initial encounter (principal); T50.901A Poisoning by unspecified drugs, medicaments and biological substances, accidental (unintentional), initial encounter; F10.10 Alcohol abuse, uncomplicated; K21.9 Gastro-esophageal reflux disease without esophagitis; M19.90 Unspecified osteoarthritis, unspecified site; E07.9 Disorder of thyroid, unspecified; Y90.9 Presence of alcohol in blood, level not specified; X58.XXXA Exposure to other specified factors, initial encounter; Y93.89 Activity, other specified; Y92.89 Other specified places as the place of occurrence of the external cause; Y99.8 Other external cause status
CPT/HCPCS: 12052; 36415; 80053; 80307; 80320; 80329; 81001; 85025; 96361; 96365; 99285; J0690; J3480; 12013; 93005

== ENCOUNTER → 2020-07-31 | Outpatient (CLI) | payer BC ==
[2020-07-31 12:48] LABS: Albumin 4.2 g/dL (3.4-5.0); Calcium 9.1 mg/dL (8.5-10.1)
[2020-07-31 12:52] LABS: BUN/Creatinine Ratio 20.6; Bilirubin, Total 0.4 mg/dL (0.2-1.0); Total Protein 7.9 g/dL (6.4-8.2)
[2020-07-31 17:44] LABS: Amphetamine Screen, Urine NEGATIVE (NEGATIVE); Barbiturate Scree,Urine NEGATIVE (NEGATIVE); Benzodiazephine Screen, Urine NEGATIVE (NEGATIVE); Cannabinoid Screen, Urine POSITIVE (NEGATIVE); Cocaine Screen, Urine NEGATIVE (NEGATIVE)
[2020-07-31 17:55] LABS: Opiate Scree,Urine NEGATIVE (NEGATIVE); Phencyclidine Screen, Urine NEGATIVE (NEGATIVE)
== END | disposition home or self-care (01) ==
LOC: LAB 11:54
PROVIDERS: ATTEND Internal Medicine
DX: M06.9 Rheumatoid arthritis, unspecified (principal); R73.03 Prediabetes; E03.9 Hypothyroidism, unspecified
CPT/HCPCS: 36415; 80053; 80307; 82043; 82550; 83036; 84443; 85652

== ENCOUNTER → 2020-09-12 | Outpatient (CLI) | payer BC | END | disposition home or self-care (01) | LOC: LAB 11:44 | PROVIDERS: ATTEND Internal Medicine | DX: Z12.11 Encounter for screening for malignant neoplasm of colon (principal); R73.03 Prediabetes; M16.9 Osteoarthritis of hip, unspecified | CPT/HCPCS: 36415; 86141 ==

== ENCOUNTER → 2020-09-16 | Outpatient (CLI) | payer BC | END | disposition home or self-care (01) | LOC: LAB 12:39 | PROVIDERS: ATTEND Internal Medicine | DX: Z12.11 Encounter for screening for malignant neoplasm of colon (principal); R73.03 Prediabetes; M06.9 Rheumatoid arthritis, unspecified | CPT/HCPCS: 82270 ==

== ENCOUNTER → 2021-01-14 | Outpatient (CLI) | payer BC ==
[2021-01-14 10:59] LABS: Basophils # (auto) 0.1 10 ^3/uL (0-0.2); Basophils % (auto) 1.1 % (0.0-2.0); Eosinophils # (auto) 0.2 10 ^3/uL (0-0.8); Eosinophils % (auto) 1.7 % (0.0-7.0); Hemoglobin 15.5 g/dL (12.2-16.2); Lymphocytes % (auto) 15.3 % (10.0-50.0); Mean Corpuscular Hemoglobin 34.8 pg (28.0-32.0); Mean Corpuscular Hgb Conc. 34.4 g/dL (32.0-36.0); Mean Corpuscular Volume 101.2 fL (80.0-100.0); Monocytes % (auto) 7.9 % (0.0-12.0); Neutrophils # (auto) 9.5 10 ^3/uL (1.6-8.6); Platelet Count (auto) 326 10^3/uL (140-450); Red Blood Cells 4.44 10^6/uL (4.0-5.20); Red Cell Distribution Width 13.6 % (11.8-14.3); White Blood Cell 12.9 10^3/uL (4.4-10.8)
== END | disposition home or self-care (01) ==
LOC: LAB 10:49
PROVIDERS: ATTEND Internal Medicine
DX: K13.70 Unspecified lesions of oral mucosa (principal)
CPT/HCPCS: 36415; 85025; 85049

== ENCOUNTER → 2021-04-15 | Outpatient (CLI) | payer BC ==
[2021-04-15 14:12] LABS: Albumin 3.7 g/dL (3.4-5.0); Calcium 9.3 mg/dL (8.5-10.1)
[2021-04-15 14:16] LABS: BUN/Creatinine Ratio 14.5; Bilirubin, Total 0.3 mg/dL (0.2-1.0); Total Protein 7.1 g/dL (6.4-8.2)
== END | disposition home or self-care (01) ==
LOC: LAB 13:32
PROVIDERS: ATTEND Internal Medicine
DX: C04.1 Malignant neoplasm of lateral floor of mouth (principal)
CPT/HCPCS: 36415; 80053

== ENCOUNTER 2021-10-02 09:38 | Inpatient (IN) | payer BC ==
[~2021-10-02] VITALS: Ht 175.3 cm; Wt 46.5 kg
[2021-10-02 10:54] LABS: Basophils # (auto) 0.1 10 ^3/uL (0-0.2); Basophils % (auto) 0.9 % (0.0-2.0); Eosinophils # (auto) 0.2 10 ^3/uL (0-0.8); Eosinophils % (auto) 1.4 % (0.0-7.0); Hematocrit 43.4 % (36.0-46.0); Hemoglobin 14.6 g/dL (12.2-16.2); Lymphocytes # (auto) 1.3 10 ^3/uL (0.4-5.4); Lymphocytes % (auto) 11.9 % (10.0-50.0); Mean Corpuscular Hemoglobin 33.7 pg (28.0-32.0); Mean Corpuscular Hgb Conc. 33.7 g/dL (32.0-36.0); Monocytes # (auto) 0.9 10 ^3/uL (0-1.3); Monocytes % (auto) 8.1 % (0.0-12.0); Neutrophils # (auto) 8.6 10 ^3/uL (1.6-8.6); Neutrophils % (auto) 77.7 % (37.0-80.0); Nucleated Red Blood Cells % 0.2 %; Red Blood Cells 4.34 10^6/uL (4.0-5.20); Red Cell Distribution Width 13.6 % (11.8-14.3); White Blood Cell 11.1 10^3/uL (4.4-10.8)
[2021-10-02 11:02] LABS: Potassium 3.5 mmol/L (3.5-5.1)
[2021-10-02 11:08] LABS: BUN/Creatinine Ratio 18.6; Bilirubin, Total 0.3 mg/dL (0.2-1.0); Calcium 12.6 mg/dL (8.5-10.1); Total Protein 6.6 g/dL (6.4-8.2)
[2021-10-02] MEDS ORDERED: SODIUM CHLORIDE 0.9% 1,000 ML IV ONE (11:30)
[2021-10-02 13:57] LABS: Partial Thromboplastin Time 27.4 sec (23.6-33.0)
[2021-10-02] MEDS ORDERED: Ensure HIGH Protein Chocolate 8oz Bottle PO ONE (16:00)
[2021-10-02] MEDS ORDERED: HYDROmorphone HCL 2 MG/ML VL IV ONE (16:00)
[2021-10-02] MEDS ORDERED: ONDANSETRON HCL 4 MG/2 ML VIAL IV ONE (16:00)
[2021-10-02] MEDS ORDERED: HYDROcodone-ACET 5/325MG TAB PO PRN (16:30)
[2021-10-02] MEDS ORDERED: ONDANSETRON HCL 4 MG/2 ML VIAL IV PRN (16:30)
[2021-10-02] MEDS ORDERED: ACETAMINOPHEN 325 MG TAB PO PRN (16:30)
[2021-10-02] MEDS ORDERED: NITROGLYCERIN 0.4 MG SL TAB SL PRN (17:15)
[2021-10-02] MEDS ORDERED: MORPHINE SULFATE INJECTION 2 MG/ML SYRG IV PRN (17:15)
[2021-10-02] MEDS ORDERED: POTASSIUM CHL 20MEQ/100ML 100 ML IV ONE (17:30)
[2021-10-02] MEDS: SODIUM CHLORIDE 0.9% 1,000 ML IV SCH (18:30)
[2021-10-02] MEDS: HYDROmorphone HCL 2 MG/ML VL IV PRN (21:33)
[2021-10-03] MEDS: HYDROmorphone HCL 2 MG/ML VL IV PRN ×4 (01:33→14:57)
[2021-10-03] MEDS ORDERED: HYOS0.1291 SL (03:54)
[2021-10-03] MEDS ORDERED: TEMA15CA2 PO (03:54)
[2021-10-03] MEDS ORDERED: FENT100D2 TOP (03:54)
[2021-10-03] MEDS ORDERED: LID100LQ PO (03:54)
[2021-10-03] MEDS ORDERED: METH10CO4 PO (03:54)
[2021-10-03] MEDS ORDERED: [UNRECOGNIZED DRUG - CODE] PO (03:54)
[2021-10-03] MEDS ORDERED: BISA10SU5 PR (03:54)
[2021-10-03] MEDS ORDERED: LORA2CON PO (03:54)
[2021-10-03] MEDS ORDERED: FENT50DI2 TOP (03:54)
[2021-10-03] MEDS ORDERED: FLUO0.059 TOP (03:54)
[2021-10-03] MEDS ORDERED: [UNRECOGNIZED DRUG - CODE] PO (03:54)
[2021-10-03] MEDS ORDERED: GLYC1TAB18 PO (03:54)
[2021-10-03] MEDS ORDERED: HYDR1SOL36 PO (03:54)
[2021-10-03 05:00] VITALS: BP 115/76
[2021-10-03 05:28] LABS: Urine Bacteria NONE SEEN /hpf (None Seen); Urine Blood Negative /uL (Negative); Urine Hyaline Cast FEW /lpf (0 - 2); Urine Specific Gravity 1.005 (1.001-1.035); Urine WBC 2 /hpf (0 - 5)
[2021-10-03 05:47] LABS: Basophils # (auto) 0.1 10 ^3/uL (0-0.2); Eosinophils # (auto) 0.2 10 ^3/uL (0-0.8); Lymphocytes # (auto) 1.4 10 ^3/uL (0.4-5.4); Lymphocytes % (auto) 13.2 % (10.0-50.0); Monocytes # (auto) 1.2 10 ^3/uL (0-1.3); White Blood Cell 10.9 10^3/uL (4.4-10.8)
[2021-10-03 05:48] LABS: Eosinophils % (auto) 1.6 % (0.0-7.0); Hematocrit 37.3 % (36.0-46.0); Hemoglobin 12.9 g/dL (12.2-16.2); Mean Corpuscular Hemoglobin 34.5 pg (28.0-32.0); Mean Corpuscular Hgb Conc. 34.6 g/dL (32.0-36.0); Mean Corpuscular Volume 99.9 fL (80.0-100.0); Monocytes % (auto) 10.8 % (0.0-12.0); Neutrophils % (auto) 73.4 % (37.0-80.0); Red Blood Cells 3.73 10^6/uL (4.0-5.20); Red Cell Distribution Width 13.7 % (11.8-14.3)
[2021-10-03 06:08] LABS: Potassium 3.4 mmol/L (3.5-5.1)
[2021-10-03 06:14] LABS: Albumin 2.6 g/dL (3.4-5.0); BUN/Creatinine Ratio 23.5; Calcium 11.6 mg/dL (8.5-10.1)
[2021-10-03 06:16] LABS: Bilirubin, Total 0.3 mg/dL (0.2-1.0); Total Protein 5.6 g/dL (6.4-8.2)
[2021-10-03] MEDS ORDERED: LEVOTHYROXINE SODIUM 25 MCG TAB PO SCH (07:00)
[2021-10-03] MEDS ORDERED: SODIUM CHLORIDE LOCK 10 ML ONE (08:30)
[2021-10-03] MEDS ORDERED: diphenhdrAMINE HCL 50 MG/1 ML VL ONE (08:30)
[2021-10-03] MEDS ORDERED: LIDOCAINE VISCOUS 2% 15ML UD ONE (08:30)
[2021-10-03] MEDS ORDERED: MIDAZOLAM HCL 5 MG/ML-1ML VIAL ONE (08:30)
[2021-10-03 08:35] VITALS: BP 127/69
[2021-10-03] MEDS: SODIUM CHLORIDE 0.9% 1,000 ML IV SCH (09:10)
[2021-10-03] MEDS ORDERED: ENOXAPARIN SOD 40 MG/0.4 ML SYRINGE SC SCH (10:00)
[2021-10-03] MEDS ORDERED: FAMOTIDINE (10MG/ML) 2ML VL IV SCH (10:00)
[2021-10-03] MEDS ORDERED: POTASSIUM CHL 20MEQ/100ML 100 ML IV SCH (10:45)
[2021-10-03] MEDS ORDERED: CLINDAMYCIN 600MG IV 50 ML IV ONE ×2 (11:47→11:50)
[2021-10-03] MEDS: fentaNYL CITRATE 100 MCG/2 ML VL ONE ×2 (11:59→12:05)
[2021-10-03 16:35] VITALS: BP 131/75
[2021-10-03 16:38] VITALS: BP 131/75
== END 2021-10-03 17:24 | disposition home or self-care (01) | DRG 147 ==
LOC: ER 09:38 → OVERFLOW 17:12 → EAST 21:06
PROVIDERS: ADMIT Nurse Practitioner Family; ATTEND Internal Medicine
PROC: 0DH63UZ Insertion of Feeding Device into Stomach, Percutaneous Approach (ICD-10-PCS; principal; 2021-10-03 11:50)
DX: C10.9 Malignant neoplasm of oropharynx, unspecified (principal); E46 Unspecified protein-calorie malnutrition; Z68.1 Body mass index [BMI] 19.9 or less, adult; R13.10 Dysphagia, unspecified; E87.6 Hypokalemia; E88.09 Other disorders of plasma-protein metabolism, not elsewhere classified; Z66 Do not resuscitate; E03.9 Hypothyroidism, unspecified; E83.52 Hypercalcemia; E86.0 Dehydration; F12.90 Cannabis use, unspecified, uncomplicated; F17.210 Nicotine dependence, cigarettes, uncomplicated; G89.4 Chronic pain syndrome; J44.9 Chronic obstructive pulmonary disease, unspecified; Z20.822 Contact with and (suspected) exposure to COVID-19; K44.9 Diaphragmatic hernia without obstruction or gangrene; M32.9 Systemic lupus erythematosus, unspecified; R62.7 Adult failure to thrive; Z80.0 Family history of malignant neoplasm of digestive organs; Z93.1 Gastrostomy status; Z88.0 Allergy status to penicillin; Z88.8 Allergy status to other drugs, medicaments and biological substances; Z85.819 Personal history of malignant neoplasm of unspecified site of lip, oral cavity, and pharynx; Z98.82 Breast implant status
CPT/HCPCS: 36415; 80053; 81001; 83036; 84443; 85025; 85610; 85730; 93005; G0378; J2250; J2405; J3480; J3490

== ENCOUNTER 2021-11-09 22:13 | Inpatient (IN) | payer BC ==
[~2021-11-09] VITALS: Ht 177.8 cm; Wt 56.6 kg
[~2021-11-09 22:13] MED LIST changes: +BISA10SU5 PR; +FENT100D2 TOP; +FENT50DI2 TOP; +FLUO0.059 TOP; +GLYC1TAB18 PO; +HYDR1SOL36 PO; +HYOS0.1291 SL; +LID100LQ PO; +LORA2CON PO; +METH10CO4 PO; +TEMA15CA2 PO; +[UNRECOGNIZED DRUG - CODE] PO; +[UNRECOGNIZED DRUG - CODE] PO
[2021-11-10] MEDS ORDERED: SODIUM CHLORIDE 0.9% 1,000 ML IV ONE ×2 (01:00→03:45)
[2021-11-10 01:58] LABS: Red Cell Distribution Width 14.6 % (11.8-14.3)
[2021-11-10 01:59] LABS: Neutrophils % (auto) 72.8 % (37.0-80.0); White Blood Cell 11.3 10^3/uL (4.4-10.8)
[2021-11-10 02:00] LABS: Basophils # (auto) 0.1 10 ^3/uL (0-0.2); Basophils % (auto) 1.2 % (0.0-2.0); Eosinophils # (auto) 0.2 10 ^3/uL (0-0.8); Eosinophils % (auto) 1.8 % (0.0-7.0); Hematocrit 35.4 % (36.0-46.0); Hemoglobin 12.1 g/dL (12.2-16.2); Lymphocytes # (auto) 1.8 10 ^3/uL (0.4-5.4); Lymphocytes % (auto) 15.7 % (10.0-50.0); Mean Corpuscular Hemoglobin 33.9 pg (28.0-32.0); Mean Corpuscular Hgb Conc. 34.2 g/dL (32.0-36.0); Monocytes % (auto) 8.5 % (0.0-12.0); Neutrophils # (auto) 8.2 10 ^3/uL (1.6-8.6); Nucleated Red Blood Cells % 2.4 %; Red Blood Cells 3.57 10^6/uL (4.0-5.20)
[2021-11-10 02:10] LABS: INR 1.06 (0.9-1.15); Partial Thromboplastin Time 25.5 sec (23.6-33.0)
[2021-11-10 02:11] LABS: Albumin 3.1 g/dL (3.4-5.0); Potassium 3.3 mmol/L (3.5-5.1)
[2021-11-10 02:15] LABS: Bilirubin, Total 0.4 mg/dL (0.2-1.0); Total Protein 6.8 g/dL (6.4-8.2)
[2021-11-10 02:27] LABS: Calcium 14.8 mg/dL (8.5-10.1)
[2021-11-10] MEDS ORDERED: PAMIDRONATE DISODIUM 60 MG in SOD CHL 0.45% 1,000 ML IV ONE (03:45)
[2021-11-10] MEDS: D5W/SOD CHLO 0.9% 1,000 ML IV SCH ×2 (05:43→09:02)
[2021-11-10] MEDS ORDERED: HYDROmorphone HCL 2 MG/ML VL IV ONE (06:00)
[2021-11-10] MEDS ORDERED: ZOLEDRONIC ACID 4 MG in SODIUM CHL 0.9% 100 ML IV ONE (11:30)
[2021-11-10 16:50] VITALS: BP 105/69
[2021-11-10 20:00] VITALS: BP 111/71
[2021-11-11] MEDS: MORPHINE SULFATE INJECTION 2 MG/ML SYRG IV PRN ×2 (00:06→21:31)
[2021-11-11 00:52] LABS: Urine Bacteria NONE SEEN /hpf (None Seen); Urine Blood Negative /uL (Negative); Urine Specific Gravity 1.008 (1.001-1.035); Urine WBC 10 /hpf (0 - 5)
[2021-11-11] MEDS: ONDANSETRON HCL 4 MG/2 ML VIAL IV PRN ×2 (02:55→21:31)
[2021-11-11 05:00] VITALS: BP 106/64
[2021-11-11 05:39] LABS: Basophils # (auto) 0 10 ^3/uL (0-0.2); Basophils % (auto) 0.4 % (0.0-2.0); Eosinophils # (auto) 0.1 10 ^3/uL (0-0.8); Eosinophils % (auto) 0.8 % (0.0-7.0); Hematocrit 33.3 % (36.0-46.0); Hemoglobin 11.5 g/dL (12.2-16.2); Lymphocytes # (auto) 1.1 10 ^3/uL (0.4-5.4); Lymphocytes % (auto) 9.5 % (10.0-50.0); Mean Corpuscular Hemoglobin 34.1 pg (28.0-32.0); Mean Corpuscular Hgb Conc. 34.5 g/dL (32.0-36.0); Mean Corpuscular Volume 98.8 fL (80.0-100.0); Monocytes # (auto) 1.1 10 ^3/uL (0-1.3); Monocytes % (auto) 8.9 % (0.0-12.0); Neutrophils # (auto) 9.6 10 ^3/uL (1.6-8.6); Neutrophils % (auto) 80.4 % (37.0-80.0); Red Blood Cells 3.37 10^6/uL (4.0-5.20); Red Cell Distribution Width 14.5 % (11.8-14.3); White Blood Cell 11.9 10^3/uL (4.4-10.8)
[2021-11-11 06:00] LABS: Albumin 2.9 g/dL (3.4-5.0)
[2021-11-11 06:03] LABS: BUN/Creatinine Ratio 31.4; Bilirubin, Total 0.5 mg/dL (0.2-1.0); Total Protein 6.5 g/dL (6.4-8.2)
[2021-11-11 06:22] LABS: Calcium 13.9 mg/dL (8.5-10.1)
[2021-11-11] MEDS ORDERED: MIDAZOLAM HCL 5 MG/ML-1ML VIAL ONE (08:18)
[2021-11-11] MEDS ORDERED: diphenhdrAMINE HCL 50 MG/1 ML VL ONE (08:18)
[2021-11-11] MEDS ORDERED: LIDOCAINE VISCOUS 2% 15ML UD ONE (08:18)
[2021-11-11] MEDS ORDERED: SODIUM CHLORIDE LOCK 10 ML ONE (08:18)
[2021-11-11] MEDS ORDERED: fentaNYL CITRATE 100 MCG/2 ML VL ONE ×2 (08:19→09:23)
[2021-11-11 09:00] VITALS: BP 118/76
[2021-11-11] MEDS ORDERED: POTASSIUM CHL 20MEQ/100ML 100 ML IV ONE ×2 (09:10→09:30)
[2021-11-11] MEDS ORDERED: MIDAZOLAM HCL 2MG/2ML 2ml VIAL (1mg/ml) ONE (09:24)
[2021-11-11] MEDS ORDERED: ONDANSETRON HCL 4 MG/2 ML VIAL ONE (09:26)
[2021-11-11] MEDS ORDERED: LIDOCAINE 2% (LOCAL ANESTH.) PF 5ml SDV ONE (09:26)
[2021-11-11] MEDS ORDERED: PROPOFOL 10 MG/ML 20 ML IV ONE ×2 (09:26→09:39)
[2021-11-11] MEDS ORDERED: ONDANSETRON HCL 4 MG/2 ML VIAL IV PRN (10:30)
[2021-11-11 12:31] VITALS: BP 115/59
[2021-11-11 12:34] VITALS: BP 116/75
[2021-11-11 16:53] VITALS: BP 111/74
[2021-11-11] MEDS: D5W/SOD CHLO 0.9% 1,000 ML IV SCH ×2 (20:50→20:51)
[2021-11-11 21:00] VITALS: BP 112/77
[2021-11-12 05:01] VITALS: BP 96/65
[2021-11-12 06:23] LABS: Albumin 2.3 g/dL (3.4-5.0); Calcium 10.2 mg/dL (8.5-10.1); Potassium 3.1 mmol/L (3.5-5.1)
[2021-11-12 06:29] LABS: Bilirubin, Total 0.2 mg/dL (0.2-1.0); Total Protein 5.3 g/dL (6.4-8.2)
[2021-11-12] MEDS ORDERED: GASTROGRAFIN 30 ML SOL ONE (07:44)
[2021-11-12] MEDS ORDERED: POTASSIUM EFFERVESENT TAB 25 MEQ PO ONE (08:30)
[2021-11-12 09:00] VITALS: BP 95/69
[2021-11-12] MEDS: D5W/SOD CHLO 0.9% 1,000 ML IV SCH (10:07)
[2021-11-12 12:38] VITALS: BP 101/72
[2021-11-12 15:02] VITALS: BP 105/70
== END 2021-11-12 18:04 | disposition hospice, home (50) | DRG 395 ==
LOC: EDBD 22:13 → ER 22:13 → TELE 11-10 03:42 → WEST WING 11-10 16:38
PROVIDERS: ADMIT Nurse Practitioner; ATTEND Internal Medicine
PROC: 0D20XUZ Change Feeding Device in Upper Intestinal Tract, External Approach (ICD-10-PCS; principal; 2021-11-11 09:24)
DX: K94.23 Gastrostomy malfunction (principal); F12.90 Cannabis use, unspecified, uncomplicated; F17.210 Nicotine dependence, cigarettes, uncomplicated; M32.9 Systemic lupus erythematosus, unspecified; R13.10 Dysphagia, unspecified; Z20.822 Contact with and (suspected) exposure to COVID-19; M19.90 Unspecified osteoarthritis, unspecified site; K21.9 Gastro-esophageal reflux disease without esophagitis; E83.52 Hypercalcemia; E87.6 Hypokalemia; Z80.9 Family history of malignant neoplasm, unspecified; Z88.0 Allergy status to penicillin; Z88.8 Allergy status to other drugs, medicaments and biological substances; Z85.818 Personal history of malignant neoplasm of other sites of lip, oral cavity, and pharynx
CPT/HCPCS: 36415; 71045; 74018; 80053; 81001; 85025; 85610; 85730; 86850; 86900; 86901; 96361; 96365; 96375; G0378; J2001; J2250; J2405; J2704; J3480; J3489